=== PATIENT | male | born 1935 | race Caucasian/White ===

== ENCOUNTER 2016-06-20 12:24 | Emergency (ER) | payer OTHER, BC ==
[~2016-06-20] VITALS: Ht 170.2 cm; Wt 84.0 kg
[~2016-06-20 12:24] MED LIST: ASCORBIC ACID500 M3 PO; LO-DOSE ASPIRIN81 M2 PO; OMEPRAZOLE20 MG PO
[2016-06-20 13:22] LABS: CHLORIDE 109 mEq/L (99-109); POTASSIUM 4.2 mEq/L (3.7-5.4); SODIUM 143 mEq/L (136-147)
[2016-06-20 13:24] LABS: GLUCOSE 105 mg/dL (70-99); INTER. NORMALIZED RATIO 1.1; PROTHROMBIN TIME 10.8 (9.2-11.2); PTT 28.4 (25-32)
[2016-06-20 13:25] LABS: ANION GAP 10 MEQ/L (2-14); BASOPHIL COUNT 0.1 K/uL (0-0.1); EOSINOPHIL (%) 4.4 % (0-5); EOSINOPHIL COUNT 0.3 K/uL (0-0.3); HEMATOCRIT 46.9 % (38.0-50.0); IMMATURE GRANULOCYTE (%) 0.4 % (0.0-0.7); INSTRUMENT ABS NEUTROPHIL CT 4.1 K/uL; LYMPHOCYTE COUNT 2.5 K/uL (1.0-2.8); MCHC 33.3 G/DL (30.0-36.0); MCV 93.2 FL (86-99); MEAN PLAT.VOLUME 9.2 uM^3 (9.0-12.4); MONOCYTE (%) 8.8 % (3-12); MONOCYTE COUNT 0.7 K/uL (0-0.8); NEUTROPHIL (%) 52.9 % (45-76); NEUTROPHIL COUNT 4.1 K/uL (1.8-6.4); PLATELET COUNT 236 K/uL (156-360); RBC DIS.WIDTH-CV 13.2 % (11.8-14.6); RBC DIS.WIDTH-SD 44.9 % (39-53); RED BLOOD COUNT 5.03 M/uL (4.00-5.50); WHITE BLOOD COUNT 7.7 K/uL (4.1-10.2)
[2016-06-20 13:28] LABS: GFR ESTIMATE (CALCULATED) > 59 mL/min/; UREA NITROGEN (BUN) 15 mg/dL (9-23)
[2016-06-20 13:34] LABS: TROP-I INTERPRETATION NEGATIVE; TROPONIN-I < 0.01 ng/mL (0.0-0.30)
[2016-06-20] MEDS ORDERED: CARDIZEM CD180 MG PO (13:51)
[2016-06-20 14:35] VITALS: BP 128/80
== END 2016-06-20 14:36 | disposition home or self-care (01) ==
LOC: EME 12:24
PROVIDERS: Emergency Medicine
DX: I47.1 Supraventricular tachycardia (principal); Z79.82 Long term (current) use of aspirin
CPT/HCPCS: 71010; 80048; 84484; 85025; 85610; 85730; 93005; 99281; 99285; J0153

== ENCOUNTER 2016-06-25 08:51 | Emergency (ER) | payer OTHER, BC ==
[~2016-06-25] VITALS: Ht 167.6 cm; Wt 83.2 kg
[~2016-06-25 08:51] MED LIST changes: +CARDIZEM CD180 MG PO
[2016-06-25 09:15] LABS: HEMATOCRIT 47.8 % (38.0-50.0); MCH 31.7 PG (29.0-34.0); MCHC 34.1 G/DL (30.0-36.0); MCV 92.8 FL (86-99); MEAN PLAT.VOLUME 9.1 uM^3 (9.0-12.4); PLATELET COUNT 239 K/uL (156-360); RBC DIS.WIDTH-CV 12.7 % (11.8-14.6); RBC DIS.WIDTH-SD 43.6 % (39-53); RED BLOOD COUNT 5.15 M/uL (4.00-5.50); WHITE BLOOD COUNT 8.8 K/uL (4.1-10.2)
[2016-06-25 09:26] LABS: CHLORIDE 108 mEq/L (99-109); POTASSIUM 4.3 mEq/L (3.7-5.4); SODIUM 138 mEq/L (136-147)
[2016-06-25 09:28] LABS: GLUCOSE 154 mg/dL (70-99)
[2016-06-25 09:29] LABS: ANION GAP 11 MEQ/L (2-14)
[2016-06-25 09:31] LABS: GFR ESTIMATE (CALCULATED) > 59 mL/min/
[2016-06-25 09:32] LABS: UREA NITROGEN (BUN) 22 mg/dL (9-23)
[2016-06-25 09:36] LABS: TROP-I INTERPRETATION NEGATIVE; TROPONIN-I < 0.01 ng/mL (0.0-0.30)
[2016-06-25 11:39] LABS: TROP-I INTERPRETATION NEGATIVE; TROPONIN-I 0.01 ng/mL (0.0-0.30)
[2016-06-25] MEDS ORDERED: DIGITEK250 MC2 PO (11:46)
[2016-06-25 12:05] VITALS: BP 109/75
== END 2016-06-25 12:10 | disposition home or self-care (01) ==
LOC: EME 08:51
PROVIDERS: Emergency Medicine
DX: I47.1 Supraventricular tachycardia (principal); Z79.82 Long term (current) use of aspirin
CPT/HCPCS: 71010; 80048; 84484; 85027; 93005; 99281; 99285; J0153; J7040

== ENCOUNTER 2016-12-24 21:29 | Inpatient (IN) | payer OTHER, BC ==
[~2016-12-24] VITALS: Ht 165.1 cm; Wt 82.4 kg
[~2016-12-24 21:29] MED LIST changes: +DIGITEK250 MC2 PO; +FLECAINIDE ACET50 MG PO; +MOBIC15 MG PO; +OMEPRAZOLE40 M1 PO; +TYLENOL ARTHRI650 MG PO
[2016-12-25 08:25] VITALS: BP 150/81
[2016-12-25 13:13] LABS: HEMATOCRIT 38.2 % (38.0-50.0); MCV 94.6 FL (86-99)
[2016-12-25 14:00] VITALS: BP 129/65
[2016-12-25 15:59] VITALS: BP 125/72
[2016-12-25 19:49] VITALS: BP 133/76
[2016-12-26 00:12] VITALS: BP 186/93
[2016-12-26 02:12] LABS: PTT 26.1 SEC (25-37)
[2016-12-26 02:50] LABS: GFR ESTIMATE (CALCULATED) > 59 mL/min/
[2016-12-26 02:51] LABS: UREA NITROGEN (BUN) 18 mg/dL (9-23)
[2016-12-26 04:07] VITALS: BP 147/78
[2016-12-26 05:10] LABS: HEMATOCRIT 39.7 % (38.0-50.0); MCV 93.6 FL (86-99)
[2016-12-26 05:29] LABS: CHLORIDE 102 mEq/L (99-109); POTASSIUM 3.9 mEq/L (3.7-5.4); SODIUM 135 mEq/L (136-147)
[2016-12-26 05:31] LABS: GLUCOSE 166 mg/dL (70-99)
[2016-12-26 05:32] LABS: ANION GAP 11 MEQ/L (2-14)
[2016-12-26 05:35] LABS: GFR ESTIMATE (CALCULATED) > 59 mL/min/; UREA NITROGEN (BUN) 19 mg/dL (9-23)
[2016-12-26 12:14] VITALS: BP 152/70
[2016-12-26 15:34] VITALS: BP 141/65
[2016-12-26 20:06] VITALS: BP 137/68
[2016-12-27 00:02] VITALS: BP 154/80
[2016-12-27 03:59] VITALS: BP 137/80
[2016-12-27 08:22] VITALS: BP 148/75
[2016-12-27 11:45] VITALS: BP 132/69
[2016-12-27 15:51] VITALS: BP 161/80
[2016-12-27 20:01] VITALS: BP 152/78
[2016-12-28 00:13] VITALS: BP 157/81
[2016-12-28 04:12] VITALS: BP 151/76
[2016-12-28 08:21] VITALS: BP 153/75
[2016-12-28] MEDS ORDERED: ELIQUIS2.5 MG PO (09:57)
[2016-12-28] MEDS ORDERED: OXYCODONE HCL5 MG PO (09:57)
== END 2016-12-28 11:36 | disposition home health service (06) | DRG 469 ==
LOC: CANRESERV 21:29 → ENRESERV 21:29 → 2SOUTH 12-25 07:40 → 3WEST 12-25 07:40 → 2SOUTH 12-25 11:55 → ENRESERV 12-25 13:44 → 3WEST 12-25 13:45 → 2SOUTH 12-25 15:00 → 3WEST 12-28 11:36
PROVIDERS: Family Medicine; Orthopaedic Surgery
PROC: 0SRB04A Replacement of Left Hip Joint with Ceramic on Polyethylene Synthetic Substitute, Uncemented, Open Approach (ICD-10-PCS; principal; 2016-12-25)
DX: M16.12 Unilateral primary osteoarthritis, left hip (principal); J18.9 Pneumonia, unspecified organism; I47.1 Supraventricular tachycardia; R09.02 Hypoxemia; K21.9 Gastro-esophageal reflux disease without esophagitis; Z79.82 Long term (current) use of aspirin; Z80.9 Family history of malignant neoplasm, unspecified
CPT/HCPCS: 71010; 71275; 73501; 80048; 82565; 84520; 85014; 85018; 85379; 85730; 93970; 94640; 94640 76; 94799; 99202; J0131; J0690; J2250; J2370; J2930; J3010; J7050; Q0175

== ENCOUNTER 2017-11-09 21:15 | Emergency (ER) | payer OTHER, BC ==
[~2017-11-09] VITALS: Ht 167.6 cm; Wt 85.4 kg
[~2017-11-09 21:15] MED LIST changes: +ELIQUIS2.5 MG PO; +OXYCODONE HCL5 MG PO
[2017-11-09 22:11] LABS: HEMATOCRIT 43.2 % (38.0-50.0); MCH 32.1 PG (29.0-34.0); MCHC 34.7 G/DL (30.0-36.0); MCV 92.5 FL (86-99); PLATELET COUNT 212 K/uL (156-360); RBC DIS.WIDTH-CV 13.2 % (11.8-14.6); RBC DIS.WIDTH-SD 44.8 % (39-53); RED BLOOD COUNT 4.67 M/uL (4.00-5.50); WHITE BLOOD COUNT 8.3 K/uL (4.1-10.2)
[2017-11-09 22:27] LABS: CHLORIDE 107 mEq/L (99-109); POTASSIUM 4.1 mEq/L (3.7-5.4); SODIUM 138 mEq/L (136-147)
[2017-11-09 22:28] LABS: GLUCOSE 110 mg/dL (70-99)
[2017-11-09 22:32] LABS: CREATININE 1.2 mg/dL (0.6-1.3); GFR ESTIMATE (CALCULATED) > 59 mL/min/ (58.99-99999)
[2017-11-09 22:33] LABS: UREA NITROGEN (BUN) 16 mg/dL (9-23)
[2017-11-09 22:34] LABS: TROP-I INTERPRETATION NEGATIVE; TROPONIN-I < 0.01 ng/mL (0.0-0.30)
[2017-11-09 23:35] LABS: APPEARANCE CLEAR ((CLEAR)); BILIRUBIN NEGATIVE; BLOOD NEGATIVE; COLOR STRAW ((YELLOW)); GLUCOSE (STRIP) NEGATIVE; KETONES NEGATIVE; LEUKOCYTES NEGATIVE; NITRITE NEGATIVE; PROTEIN (STRIP) NEGATIVE; SPECIFIC GRAVITY 1.005 (1.000-1.030); UROBILINOGEN 0.2 MG/DL (0.2-1.0)
[2017-11-10 01:32] LABS: TROP-I INTERPRETATION NEGATIVE; TROPONIN-I 0.04 ng/mL (0.0-0.30)
[2017-11-10 01:50] VITALS: BP 117/78
== END 2017-11-10 01:55 | disposition home or self-care (01) ==
LOC: EME 21:15
PROVIDERS: Emergency Medicine
DX: R00.0 Tachycardia, unspecified (principal); I44.0 Atrioventricular block, first degree; I45.4 Nonspecific intraventricular block; R94.31 Abnormal electrocardiogram [ECG] [EKG]; Z86.79 Personal history of other diseases of the circulatory system; Z85.9 Personal history of malignant neoplasm, unspecified
CPT/HCPCS: 71046; 80048; 81003; 84484; 85027; 93005; 99281; 99284; J7030